=== PATIENT | female | born 1995 | race Caucasian/White ===

== ENCOUNTER 2022-12-28 01:06 | Emergency (ER) | payer OTHER ==
[~2022-12-28] VITALS: Ht 154.9 cm; Wt 108.0 kg
[2022-12-28 01:28] VITALS: BP 124/77; PULSE 88; RESP 17; TEMP 98.6
[2022-12-28] MEDS ORDERED: ONDA-104 PO (02:59)
[2022-12-28] MEDS ORDERED: ONDANSETRON HCL 4 MG/2 ML VIAL IM ONE (03:00)
[2022-12-28] MEDS ORDERED: CloNIDine HCL 0.1 MG TABLET PO ONE (03:00)
[2022-12-28] MEDS ORDERED: HydrOXYzine HCL 25 MG TABLET PO ONE (03:00)
== END 2022-12-28 03:47 | disposition home or self-care (01) ==
LOC: EMS 01:06
DX: F41.9 Anxiety disorder, unspecified (principal); R11.2 Nausea with vomiting, unspecified
CPT/HCPCS: 99283; 96372; J2405